=== PATIENT | female | born 1985 | race Caucasian/White ===

== ENCOUNTER → 2020-08-21 10:27 | Outpatient (CLI) | payer OTHER, SELFPAY ==
--- NOTE | ~2020-08-21 | US_ITS ---
EXAMINATION: US pelvic complete EXAM DATE: 08/21/2020 10:56 INDICATION: abn uterine bleeding . TECHNIQUE: Pelvic transabdominal sonogram was performed. There are multiple grayscale and Doppler im ages available for interpretation. There is no prior study for comparison. FINDINGS: Uterus measures 8.4 x 3.7 x 5.0 cm, with IUD centrally located inside the endometrial cavi ty. Endometrial stripe measures 10 mm, within normal limits. There is no free pelvic fluid. Right adnexa: The ovary measures 3.0 x 1.0 x 2.2 cm and is morphologically normal. Ovarian vascular f low confirmed. Left adnexa: The ovary measures 2.8 x 1.7 x 2.6 cm and is morphologically normal. Ovarian vascular fl ow confirmed. IMPRESSION: 1. Unremarkable pelvic ultrasound exam. Reviewed, dictated and finalized at location B. TREASURER
== END ==
PROVIDERS: Visit Provider Obstetrics & Gynecology Gynecology
DX: T83.89XA Other specified complication of genitourinary prosthetic devices, implants and grafts, initial encounter (principal)
CPT/HCPCS: 76856

== ENCOUNTER 2025-07-17 12:52 | Outpatient (CLI) | payer OTHER, SELFPAY ==
--- NOTE | ~2025-07-17 | US_ITS ---
EXAMINATION: US pelvic complete w TV DATE: 07/17/2025 14:03 INDICATION: Abnormal uterine and vaginal bleeding. TECHNIQUE: Multiple transabdominal and transvaginal sonographic images of the pelvis were obtained. COMPARISON: Pelvis ultrasound 08/21/2020 FINDINGS: TRANSABDOMINAL ULTRASOUND: The uterus measures 7.5 x 5.3 x 4.6 cm. There is no free fluid in the pelvis. TRANSVAGINAL ULTRASOUND: The endometrial complex measures 10 mm in thickness. There is an intrauterine device in expected position. There are multiple nabothian cysts in the cervix. The right ovary measures 2.4 x 1.9 x 1.0 cm. The left ovary measures 1.8 x 2.2 x 1.9 cm. There is normal vascular flow in the ovaries. IMPRESSION: 1. Intrauterine device in expected position. Reviewed, dictated and finalized at location E.
--- NOTE | ~2025-07-17 | US_ITS ---
EXAMINATION: US thyroid DATE: 07/17/2025 13:26 INDICATION: Nontoxic goiter. TECHNIQUE: Multiple ultrasound images of the thyroid were obtained. COMPARISON: None. FINDINGS: The right thyroid lobe measures 5.1 x 2.2 x 1.6 cm. The left thyroid lobe measures 5.0 x 2.0 x 1.6 cm. In the left thyroid lobe, there is a 7 mm almost entirely cystic nodule (TI-RADS TR1). IMPRESSION: 1. Benign thyroid nodule. No follow-up is needed. Reviewed, dictated and finalized at location E.
== END 2025-07-17 12:53 | disposition home or self-care (01) ==
DX: N93.8 Other specified abnormal uterine and vaginal bleeding (principal); Z97.5 Presence of (intrauterine) contraceptive device; E04.1 Nontoxic single thyroid nodule
CPT/HCPCS: 76536; 76830; 76856